=== PATIENT | male | born 1970 | race Caucasian/White ===

== ENCOUNTER 2020-07-12 20:48 | Emergency (ER) | payer SELFPAY ==
[2020-07-12 21:20] VITALS: BP 143/94
[2020-07-12 21:49] LABS: BASOPHILS # (AUTO) 0.1 10^3/uL (0.0-0.1); BASOPHILS % (AUTO) 1 % (0-10); EOSINOPHILS # (AUTO) 0.1 10^3/uL (0.0-0.3); EOSINOPHILS % (AUTO) 1 % (0-10); HEMATOCRIT 47 % (40-54); LYMPHOCYTES # (AUTO) 3.7 X 10^3 (1.0-4.0); LYMPHOCYTES % (AUTO) 53 % (12-44); MEAN CORPUSCULAR HEMOGLOBIN 33 PG (25-34); MEAN CORPUSCULAR HGB CONC 36 G/DL (32-36); MEAN CORPUSCULAR VOLUME 92 FL (80-99); MEAN PLATELET VOLUME 8.8 FL (7.4-10.4); MONOCYTES # (AUTO) 0.7 X 10^3 (0.0-1.0); MONOCYTES % (AUTO) 10 % (0-12); NEUTROPHILS # (AUTO) 2.4 X 10^3 (1.8-7.8); NEUTROPHILS % (AUTO) 35 % (42-75); PLATELET COUNT 228 10^3/uL (130-400); WHITE BLOOD COUNT 6.9 10^3/uL (4.3-11.0)
[2020-07-12] MEDS ORDERED: ONDANSETRON 4 MG/2 ML (SDV) Z0FRAN IVP STA (21:49)
[2020-07-12] MEDS ORDERED: NS IV 1000 ML 1,000 ML IV STA (21:49)
--- NOTE | 2020-07-12 21:54 | ED Psychosocial ---
General Chief Complaint: Substance Abuse Stated Complaint: DETOX Source: patient History of Present Illness Date Seen by Provider: Jul 12, 2020 Time Seen by Provider: 21:00 Initial Comments 49-year-old male presenting with a friend to the emergency department. He requests alcohol detox stating that he has a history of seizures and shaking with nausea and vomiting when he withdraws and does not drink alcohol. He is here visiting from [place] and reportedly came here to try and stop drinking and get off alcohol. Has had at least 2/5 of vodka daily for several years. He drank a pint of vodka about an hour prior to arrival in the ED. He is requesting Librium and discharged with his friend so he can be detoxed. He denies any other drugs in his system. He reports having hx of high blood pressure but denies taking medicine for it. He reports calling his primary doctor in [place] when he was having withdrawal symptoms. Reportedly his doctor from [place] told him to get to the emergency department right away so that he can get help with detox. Allergies and Home Medications Allergies Coded Allergies: No Known Drug Allergies (Unverified , 07/12/20) Patient Home Medication List Home Medication List Reviewed: Yes Review of Systems Constitutional: No chills, No fever EENTM: no symptoms reported Respiratory: no symptoms reported Cardiovascular: no symptoms reported Gastrointestinal: nausea, vomiting Genitourinary: other (Dark-colored urine) Musculoskeletal: no symptoms reported Skin: no symptoms reported Psychiatric/Neurological: Anxiety, Seizure (History of alcohol withdrawal seizures. Having tremors and shaking when he is not drinking), Tremors (Tremors and shaking when he is not drinking alcohol) Past Cnlyuku-Fobqmv-Dfigho Hx Past Med/Social Hx: Reviewed Nursing Past Med/Soc Hx Patient Social History Alcohol Use: Regular Use Alcohol Beverage of Choice: Vodka Smoking Status: Never a Smoker Recent Hopitalizations: No Past Medical History Surgeries: No Respiratory: No Cardiac: Yes Hypertension Neurological: No Genitourinary: No Gastrointestinal: No Musculoskeletal: No Endocrine: No HEENT: No Cancer: No Psychosocial: No Integumentary: No Blood Disorders: No Physical Exam Vital Signs - First Documented 07/12/20 21:20 Temp 36.9 Pulse 97 Resp 18 B/P (MAP) 143/94 (110) Pulse Ox 97 O2 Delivery Room Air Capillary Refill : Height, Weight, BMI Height: '" Weight: lbs. oz. kg; BMI Method: General Appearance: no apparent distress HEENT: PERRL/EOMI, pharynx normal Neck: non-tender, full range of motion, supple, normal inspection Respiratory: chest non-tender, lungs clear, normal breath sounds, no respiratory distress, no accessory muscle use Cardiovascular: normal peripheral pulses, regular rate, rhythm Gastrointestinal: normal bowel sounds, soft; No guarding, No rebound; tenderness (Right upper quadrant) Extremities: normal range of motion, non-tender, normal inspection, normal capillary refill Neurologic/Psychiatric: switchboard wirer II-XII nml as tested, alert, oriented x 3 Appearance/Memory: denies illness, disheveled, impaired insight Behavior/Eye Contact: threatening eye contact, decreased rate of speech, compulsive Thoughts/Hallucinations: no apparent hallucination Skin: normal color, warm/dry Progress/Results/Core Measures Results/Orders Lab Results Laboratory Tests Test 07/12/20 21:35 07/12/20 22:00 Range/Units White Blood Count 6.9 4.3-11.0 10^3/uL Red Blood Count 5.13 4.35-5.85 10^6/uL Hemoglobin 17.0 13.3-17.7 G/DL Hematocrit 47 40-54 % Mean Corpuscular Volume 92 80-99 FL Mean Corpuscular Hemoglobin 33 25-34 PG Mean Corpuscular Hemoglobin Concent 36 32-36 G/DL Red Cell Distribution Width 14.4 10.0-14.5 % Platelet Count 228 130-400 10^3/uL Mean Platelet Volume 8.8 7.4-10.4 FL Immature Granulocyte % (Auto) 0 % Neutrophils (%) (Auto) 35 L 42-75 % Lymphocytes (%) (Auto) 53 H 12-44 % Monocytes (%) (Auto) 10 0-12 % Eosinophils (%) (Auto) 1 0-10 % Basophils (%) (Auto) 1 0-10 % Neutrophils # (Auto) 2.4 1.8-7.8 X 10^3 Lymphocytes # (Auto) 3.7 1.0-4.0 X 10^3 Monocytes # (Auto) 0.7 0.0-1.0 X 10^3 Eosinophils # (Auto) 0.1 0.0-0.3 10^3/uL Basophils # (Auto) 0.1 0.0-0.1 10^3/uL Immature Granulocyte # (Auto) 0.0 0.0-0.1 10^3/uL Sodium Level 142 135-145 MMOL/L Potassium Level 3.3 L 3.6-5.0 MMOL/L Chloride Level 98 98-107 MMOL/L Carbon Dioxide Level 22 21-32 MMOL/L Anion Gap 22 H 5-14 MMOL/L Blood Urea Nitrogen 7 7-18 MG/DL Creatinine 1.00 0.60-1.30 MG/DL Estimat Glomerular Filtration Rate > 60 BUN/Creatinine Ratio 7 Glucose Level 131 H 70-105 MG/DL Calcium Level 9.3 8.5-10.1 MG/DL Corrected Calcium 8.5-10.1 MG/DL Magnesium Level 2.5 H 1.6-2.4 MG/DL Total Bilirubin 0.7 0.1-1.0 MG/DL Aspartate Amino Transf (AST/SGOT) 71 H 5-34 U/L Alanine Aminotransferase (ALT/SGPT) 81 H 0-55 U/L Alkaline Phosphatase 94 40-136 U/L Total Protein 8.1 6.4-8.2 GM/DL Albumin 5.2 H 3.2-4.5 GM/DL Lipase 51 8-78 U/L Salicylates Level < 0.3 L 5.0-20.0 MG/DL Acetaminophen Level < 10 L 10-30 UG/ML Serum Alcohol 409 *H <10 MG/DL Urine Color YELLOW Urine Clarity CLEAR Urine pH 6.5 5-9 Urine Specific Yolyn <=1.005 1.016-1.022 Urine Protein TRACE H NEGATIVE Urine Glucose (UA) NEGATIVE NEGATIVE Urine Ketones NEGATIVE NEGATIVE Urine Nitrite NEGATIVE NEGATIVE Urine Bilirubin NEGATIVE NEGATIVE Urine Urobilinogen 0.2 < = 1.0 MG/DL Urine Leukocyte Esterase NEGATIVE NEGATIVE Urine RBC (Auto) TRACE H NEGATIVE Urine RBC 0-2 /HPF Urine WBC NONE /HPF Urine Squamous Epithelial Cells RARE /HPF Urine Crystals NONE /LPF Urine Bacteria NEGATIVE /HPF Urine Casts NONE /LPF Urine Mucus NEGATIVE /LPF Urine Culture Indicated NO Urine Opiates Screen NEGATIVE NEGATIVE Urine Oxycodone Screen NEGATIVE NEGATIVE Urine Methadone Screen NEGATIVE NEGATIVE Urine Propoxyphene Screen NEGATIVE NEGATIVE Urine Barbiturates Screen NEGATIVE NEGATIVE Ur Tricyclic Antidepressants Screen NEGATIVE NEGATIVE Urine Phencyclidine Screen NEGATIVE NEGATIVE Urine Amphetamines Screen NEGATIVE NEGATIVE Urine Methamphetamines Screen NEGATIVE NEGATIVE Urine Benzodiazepines Screen POSITIVE H NEGATIVE Urine Cocaine Screen NEGATIVE NEGATIVE Urine Cannabinoids Screen NEGATIVE NEGATIVE My Orders Orders - BECKI GUEVARA MD Ua Culture If Indicated (07/12/20:) Cbc With Automated Diff (07/12/20:) Comprehensive Metabolic Panel (07/12/20:) Alcohol (07/12/20:) Drug Screen Stat (Urine) (07/12/20:) Acetaminophen (07/12/20:) Salicylate (07/12/20:) Ekg Tracing (07/12/20:) Ed Iv/Invasive Line Start (07/12/20) Monitor-Rhythm Ecg Trace Only (07/12/20) Magnesium (07/12/20:) Ns Iv 1000 Ml (Sodium Chloride 0.9%) (07/12/20 21:49) Ondansetron Injection (Zofran Injectio (07/12/20 21:49) Lipase (07/12/20 22:25) Vital Signs/I&O 07/12/20 21:20 Temp 36.9 Pulse 97 Resp 18 B/P (MAP) 143/94 (110) Pulse Ox 97 O2 Delivery Room Air Progress Progress Note #1: Progress Note Counseled that we do not have any detox programs in the emergency department. Can check labs and testing here. Give IV fluids and treat medically. Especially with a history of seizures and tremors when he is not drinking the options for treatment from the emergency department would be admission to safely detox his system from the alcohol. Progress Note #2: Progress Note Labs do not show any acute significant abnormality on his CBC. His chemistry shows elevated liver function tests. His alcohol level was 409. His drug screen was negative. His acetaminophen and salicylate levels were negative. 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 He had told some staff that he had a gun in his back belt but Law Enforcement came and spoke with him and found him not to have any guns. He was advised several times that I did not have a safe way to know the dose and amount or number of days to prescribe Librium for him to take by mouth at home and he would need to be admitted to truly be safe and detox without risk of seizure and harm to himself or others. He refused and signed out AGAINST MEDICAL ADVICE despite trying to be convinced otherwise by myself as well as his friend and the nursing staff. He then was requesting an appointment to be able to come back in the morning to be admitted and detoxed at that time. Advised him that there is a stand-alone emergency department a did not have a way to do any appointments. If he came back to the emergency department here we would start all over in terms of the process of rechecking his labs and test. If he needed to be admitted he could drive directly down to [place] to see about admit. He could also check with [facility] in [facility] about admit or treatment. Especially if he is agreeable to admit for detox with his history or reported prior seizure and tremors with not drinking, then he needs to be admitted to a hospital for treatment and mangement of his detox and withdrawal symptoms. Initial ECG Impression Date: Jul 12, 2020 Initial ECG Impression Time: 21:55 Initial ECG Rate: 86 Initial ECG Rhythm: Normal Sinus Initial ECG Comparisson: No Previous ECG Available Comment Normal sinus rhythm with a heart rate of 86 bpm. Borderline right axis devia tion. [place] interval 168 ms. Prolonged QT interval of 426 ms with a QTc interval of 510 ms. There is no acute ST elevation. He has no prior tracings available for comparison. Departure Impression Primary Impression: Left against medical advice Additional Impression: Acute alcoholic intoxication Qualified Codes: F10.920 - Alcohol use, unspecified with intoxication, uncomplicated Disposition: 07 AGAINST MEDICAL ADVICE Condition: Against Medical Advice Departure-Patient Inst. Decision time for Depature: 23:18 Referrals: NO,LOCAL PHYSICIAN (PCP/Family) Primary Care Physician Patient Instructions: ALCOHOL AND SUBSTANCE ABUSE, Alcohol Intoxication ED, Alcohol Use Disorder ED, Alcohol Withdrawal (DC), Alcohol Abuse and Alcoholism (DC) Add. Discharge Instructions: Return or seek medical care at a hospital where you can get admitted for medical treatment to be detoxed from the alcohol. With your history of seizures and getting shakes and tremors with not drinking alcohol the safest way to help you stop drinking is to have you monitored in the hospital on medicine. All discharge instructions reviewed with patient and/or family. Voiced understa nding. BECKI GUEVARA MD Jul 12, 2020 21:54
[2020-07-12 22:09] LABS: CLARITY,URINE CLEAR; COLOR,URINE YELLOW
[2020-07-12 22:10] LABS: GLUCOSE, URINE (UA) NEGATIVE (NEGATIVE); PH,URINE 6.5 (5-9); PROTEIN,URINE TRACE (NEGATIVE)
[2020-07-12 22:11] LABS: BILIRUBIN,URINE NEGATIVE (NEGATIVE); KETONES,URINE NEGATIVE (NEGATIVE); LEUKOCYTE ESTERASE ,URINE NEGATIVE (NEGATIVE); NITRITE,URINE NEGATIVE (NEGATIVE)
[2020-07-12 22:13] LABS: BACTERIA,URINE NEGATIVE /HPF; RBC,URINE 0-2 /HPF; SQUAMOUS EPITHELIAL CELL,UR RARE /HPF
[2020-07-12 22:15] LABS: ACETAMINOPHEN < 10 UG/ML (10-30); ALANINE AMINOTRANSFERASE 81 U/L (0-55); ALBUMIN 5.2 GM/DL (3.2-4.5); ALKALINE PHOSPHATASE 94 U/L (40-136); BILIRUBIN,TOTAL 0.7 MG/DL (0.1-1.0); BUN/CREATININE RATIO 7; CALCIUM 9.3 MG/DL (8.5-10.1); CARBON DIOXIDE 22 MMOL/L (21-32); CHLORIDE 98 MMOL/L (98-107); GFR ESTIMATED > 60; GLUCOSE 131 MG/DL (70-105); POTASSIUM 3.3 MMOL/L (3.6-5.0); SALICYLATE < 0.3 MG/DL (5.0-20.0); SODIUM 142 MMOL/L (135-145); TOTAL PROTEIN 8.1 GM/DL (6.4-8.2)
[2020-07-12 22:18] LABS: AMPHETAMINE SCREEN, URINE NEGATIVE (NEGATIVE); BARBITURATE SCREEN URINE NEGATIVE (NEGATIVE); BENZODIAZEPINES SCREEN URINE POSITIVE (NEGATIVE); CANNABINOID SCREEN, URINE NEGATIVE (NEGATIVE); COCAINE SCREEN URINE NEGATIVE (NEGATIVE); METHADONE STAT NEGATIVE (NEGATIVE); METHAMPHETAMINE SCREEN URINE S NEGATIVE (NEGATIVE); OPIATE SCREEN URINE NEGATIVE (NEGATIVE); OXYCODONE STAT NEGATIVE (NEGATIVE); PROPOXYPHENE STAT NEGATIVE (NEGATIVE); TRICYCLIC ANTIDEPRESSANTS SCRE NEGATIVE (NEGATIVE)
== END 2020-07-12 23:19 | disposition left against medical advice (07) ==
LOC: ER FS 20:52
DX: F10.220 Alcohol dependence with intoxication, uncomplicated (principal); I10 Essential (primary) hypertension; Z86.69 Personal history of other diseases of the nervous system and sense organs; Y90.8 Blood alcohol level of 240 mg/100 ml or more
CPT/HCPCS: 36415; 80053; 80306; 81000; 83690; 83735; 85025; 93041; 99284; G0480 ×3; 80320; 80329; 93005